=== PATIENT | female | born 1995 ===

== ENCOUNTER 2021-11-22 15:39 | Outpatient (CLI) | payer SELFPAY ==
[2021-11-22] MEDS ORDERED: LACTATED RINGERS 500 ML IV ONE (16:31)
[2021-11-22] MEDS ORDERED: BICITRA ORAL LIQD 30ML PO ONE (16:57)
[2021-11-22] MEDS ORDERED: CALCIUM CARBONATE 500 MG TAB CHEW PO ONE (17:00)
[2021-11-22] MEDS ORDERED: METOCLOPRAMIDE 10 MG TAB PO NR (17:00)
[2021-11-22 17:58] VITALS: BP 109/73
== END 2021-11-22 18:18 | disposition home or self-care (01) ==
LOC: TRG 15:39 → APU 15:41 → TRG 18:18
PROVIDERS: ATTEND Obstetrics & Gynecology
DX: O26.893 Other specified pregnancy related conditions, third trimester (principal); R10.9 Unspecified abdominal pain; Z3A.34 34 weeks gestation of pregnancy
CPT/HCPCS: 59025

== ENCOUNTER 2021-12-28 01:42 | Inpatient (IN) | payer SELFPAY ==
--- NOTE | 2021-12-28 03:31 | History and Physical Report ---
History of Present Illness Date of examination: 12/28/21 Date of admission: 12/28/2021 Chief complaint: Contractions History of present illness: 26-year-old at 39-4/7 weeks gestation presents to OB triage reporting contractions that are irregular yet painful occurring every 3 to 5 minutes. No vaginal bleeding. No leakage of fluid. Good movement. The patient receives care at [facility]. She reports that she is GBS positive. She states that she has gestational diabetes. However, she does not check fasting and 2-hour postmeal glucoses. As such, she is not on any medication. She has not changed her diet. She reports that her hemoglobin A1c was elevated at 5.9 today. Induction of labor was scheduled for Friday, December 31, 2021. According to the records, she had a visit yesterday at which time her cervix was 2/50%/-2. In OB triage today, cervix is 3-4/50%/-3. The patient is admitted to labor and delivery for induction of labor secondary to noncompliant gestational diabetes. Past History Past Medical History: no pertinent history Past Surgical History: no surgical history Family/Genetic History: none Social history: no significant social history - Obstetrical History Expected Date of Delivery: 12/31/21 Actual Gestation: 39 Week(s) 4 Day(s) : 3 Para: 2 Medications and Allergies Allergies Allergy/AdvReac Type Severity Reaction Status Date / Time No Known Allergies Allergy Verified 10/12/15 00:29 Home Medications Medication Instructions Recorded Confirmed Last Taken Type No Known Home Medications [No 10/12/15 10/12/15 Unknown History Reported Home Medications] Review of Systems All systems: negative - Vital Signs Vital signs: Vital Signs Pulse Pulse Ox 80 100 12/28/21 02:15 12/28/21 02:15 Temp Pulse Resp BP Pulse Ox 98.0 F 88 18 129/79 100 12/28/21 02:25 12/28/21 03:26 12/28/21 02:25 12/28/21 03:26 12/28/21 03:25 - Physical Exam Breasts: Positive: normal Cardiovascular: Regular rate Lungs: Positive: Normal air movement Abdomen: Positive: normal appearance Genitourinary (Female): Positive: normal external genitalia, normal perenium Vulva: both: normal Vagina: Positive: normal moisture Uterus: Positive: enlarged Adnexa: both: normal Anus/Rectum: Positive: normal perianal skin Extremities: Positive: normal Deep Tendon Reflex Grade: Normal +2 - Obstetrical FHR: category 1 Uterine Contraction Monitor Mode: External Cervical Dilatation: 3.5 Cervical Effacement Percentage: 50 station: -3 Uterine Contraction Frequency (min): 5 Uterine Contraction Pattern: Irregular Results All other labs normal. Ultrasound: report reviewed Assessment and Plan - Patient Problems (1) 39 weeks gestation of Current Visit: Yes Status: Acute Plan to address problem: care is up-to-date at [facility]. The patient is GBS positive. The patient's 2 hour 75 g glucose tolerance test was abnormal. The patient does not check fasting and 2-hour postmeal glucoses at home. records reveal an abnormal quad screen. She declined seeing a perinatology. Cell free DNA was low risk. (2) Gestational diabetes mellitus (GDM) affecting third Current Visit: Yes Status: Acute Plan to address problem: The patient does not check fasting and 2-hour postmeal glucoses. Hemoglobin A1c recently was 5.9. In labor delivery, check Accu-Cheks fasting and 2-hour post meal. 2200 kcal ADA diet was ordered. When in active labor, check Accu-Cheks every 1 hour. At that time the goal is to keep Accu-Cheks at 99 or below. (3) Group B Streptococcus carrier, +RV culture, currently Current Visit: Yes Status: Acute Plan to address problem: Penicillin ordered for 2010 CDC MMWR guidelines. (4) Encounter for induction of labor Current Visit: Yes Status: Acute Plan to address problem: Admit to labor and delivery. Ripen cervix further with oral Cytotec.
[2021-12-28] MEDS ORDERED: TERBUTALINE 1 MG/1 ML INJ SUB-Q PRN (03:32)
[2021-12-28] MEDS ORDERED: fentaNYL 100 MCG/2 ML INJ IV PRN (03:32)
[2021-12-28] MEDS ORDERED: METHYLERGONOVINE MALEATE 0.2 MG/ML VIAL IM PRN (03:32)
[2021-12-28] MEDS ORDERED: CARBOPROST TROMETHAMINE 250 MCG/1 ML INJ IM PRN (03:32)
[2021-12-28] MEDS ORDERED: ACETAMINOPHEN 325 MG TAB PO PRN (03:32)
[2021-12-28] MEDS ORDERED: BUTORPHANOL 2 MG/1 ML INJ IV PRN (03:32)
[2021-12-28] MEDS ORDERED: PENICILLIN G POTASSIUM 5 MIL.UNITS in SODIUM CHLORIDE 0.9% 50 ML IV ONE (03:32)
[2021-12-28] MEDS ORDERED: ePHEDrine SULFATE 50 MG/1 ML INJ IV PRN ×2 (03:32→06:30)
[2021-12-28] MEDS ORDERED: miSOPROStol 25 MCG TAB PO SCH (04:00)
[2021-12-28 04:15] LABS: Hematocrit 35.7 % (30.3-42.9); Hemoglobin 11.5 gm/dl (10.1-14.3); Mean Corpuscular HGB Conc 32 % (30-34); Mean Corpuscular Volume 83 fl (79-97); Platelet Count 257 K/mm3 (140-440); Red Blood Count 4.29 M/mm3 (3.65-5.03); Red Cell Distribution Width 15.3 % (13.2-15.2)
[2021-12-28] MEDS: SODIUM CHLORIDE 0.9% 1000 ML 1,000 ML IV SCH ×3 (04:24→08:53)
--- NOTE | 2021-12-28 04:25 | Ultrasound Report ---
ULTRASOUND OBSTETRIC INDICATION: Contractions. Clinical Gestational Age (GA): 39.4 weeks TECHNIQUE: Transabdominal. COMPARISON: None available. FINDINGS: There is a single intrauterine . Biparietal Diameter = 9.06 cm = 36 weeks, 5 day(s). Head Circumference = 29.54 cm = 32 weeks, 5 day(s). Abdominal Circumference = 33.73 cm = 37 weeks, 4 day(s). Femur Length = 7.98 cm = 40 weeks, 6 day(s). Average Ultrasound Age (AUA) = 37.0 weeks Heart Rate: 141 beats per minute. Estimated Weight in grams (if calculated): 3272 Estimated Weight Growth Percentile (if calculated): 27 Position: cephalic. Cervix: closed. Length in cm (if measured): Not measured Placenta: anterior and free of the os. Amniotic Fluid Volume: normal Amniotic Fluid Index (JOLENE) in cm (if calculated): 6.9. Maternal Adnexa: No significant abnormality. IMPRESSION: 1. Single, living intrauterine with estimated sonographic age of 37 weeks, 0 day(s). 2. No significant sonographic abnormality. Signer Name: Skinny Fitzgerald MD Signed: 12/28/2021 4:20 AM Workstation Name: [id number]
[2021-12-28] MEDS ORDERED: ONDANSETRON 4 MG/2 ML INJ IV PRN ×2 (06:30→12:07)
[2021-12-28] MEDS ORDERED: LACTATED RINGERS 250 ML IV SOLN IV ONE (06:30)
[2021-12-28] MEDS ORDERED: diphenhydrAMINE 50 MG/ML VIAL IV PRN (06:30)
[2021-12-28] MEDS ORDERED: NalbUPHINE 10 MG/1 ML INJ IV PRN (06:30)
[2021-12-28] MEDS ORDERED: NALOXONE 2 MG/2 ML INJ IV PRN (06:30)
--- NOTE | 2021-12-28 06:55 | Anesthesia Consultation ---
Anesthesia Consult and Med Hx Date of service: 12/28/21 - Airway Anesthetic Teeth Evaluation: Good ROM Head & Neck: Adequate Mental/Hyoid Distance: Adequate Mallampati Class: Class II Intubation Access Assessment: Probably Good - Pulmonary Exam CTA: Yes - Cardiac Exam Cardiac Exam: RRR - Pre-Operative Health Status ASA Pre-Surgery Classification: ASA2 Proposed Anesthetic Plan: Epidural - Pulmonary Hx Smoking: No Hx Asthma: No COPD: No Hx Pneumonia: No Hx Sleep Apnea: No - Cardiovascular System Hx Hypertension: No Hx Heart Attack/AMI: No Hx Angina: No - Central Nervous System Hx Seizures: No Hx Psychiatric Problems: No - Gastrointestinal Hx Gastroesophageal Reflux Disease: No - Endocrine Hx Renal Disease: No Hx End Stage Renal Disease: No Hx Liver Disease: No Hx Insulin Dependent Diabetes: No Hx Non-Insulin Dependent Diabetes: No Hx Hypothyroidism: No Hx Hyperthyroidism: No - Hematic Hx Anemia: No Hx Sickle Cell Disease: No - Other Systems Hx Alcohol Use: No Hx Obesity: Yes
--- NOTE | 2021-12-28 06:56 | Progress Note ---
Labor Epidural - Labor Epidural Start Time: 06:38 Stop Time: 06:51 Performed by:: NIKA BUTCHER Procedure: Patient is requesting epidural for labor and pain. H&P, labs were reviewed. Patient IDed, all questions and concerns were answered, and consent was signed. Timeout was performed at bedside. Patient in sitting position. Sterile prep and drape was performed. 3ml of 1% lidocaine skin wheal at L[3]- L [4]. 17- gauge Tuohy epidural needle was advanced to loss of resistance with air technique 8.5cm. Negative CSF negative blood. Epidural catheter advanced to [14] centimeters. [negative] Aspiration [negative] test dose. Sterile dressing applied. Patient tolerated procedure.
[2021-12-28] MEDS ORDERED: fentaNYL-BUPIV 2 MCG/ML-0.125% 200 MCG/100 ML BAG EPIDURAL SCH (07:00)
[2021-12-28] MEDS ORDERED: PENICILLIN G POTASSIUM 2.5 MIL.UNITS in SODIUM CHLORIDE 0.9% 50 ML IV SCH (08:00)
--- NOTE | 2021-12-28 08:30 | Event Note ---
Date: 12/28/21 pt evaluated and pelvic 6-7/100/0; FHR category I with areas of loss of contact. AROM done with clear fluid and FSE placed. Pt has received 1st dose of PCN for GBS+; Epidural in progress and pt comfortable. Will measure adequacy of ctx with last cytotec more than 4hrs ago and augment with pitocin in 1hr if pt unchanged or ctx inadequate. Expect
--- NOTE | 2021-12-28 10:49 | Event Note ---
Date: 12/28/21 SVE: anterior lip, 0 station.
[2021-12-28] MEDS: OXYTOCIN DRIP 30 UNITS/500 ML BAG IV SCH ×2 (11:51→12:19)
[2021-12-28] MEDS ORDERED: LANOLIN/ZINC/DIMETHICONE (LANSINOH) 7 GM TP PRN (12:07)
[2021-12-28] MEDS ORDERED: MAGNESIUM HYDROXIDE (MOM) ORAL LIQD UDC PO PRN (12:07)
[2021-12-28] MEDS ORDERED: HYDROcodone/ACETAMINOPHEN 5-325 MG TAB PO PRN (12:07)
[2021-12-28] MEDS ORDERED: WITCH HAZEL/ GLYCERIN PAD TP PRN (12:07)
--- NOTE | 2021-12-28 12:29 | Procedure Note ---
OB Delivery Note - Delivery Date of Delivery: 12/28/21 Surgeon: DEBBIE DHALIWAL Estimated blood loss: 200cc - Vaginal Delivery presentation: vertex Delivery position: OA Intrapartum events: none Delivery induction: misoprostol Delivery augmentation: rupture of membranes Delivery monitor: external FHT, external uterine, internal FHT, internal uterine Route of delivery: Delivery placenta: spontaneous Delivery cord: 3 umbilical vessels Episiotomy: none Delivery laceration: none Anesthesia: epidural Delivery comments: Spontaneous vaginal delivery at 11:46 of liveborn female weighing 3.63 kg over intact perineum with apgars of 8/9. Epidural anesthesia. was atraumatic; no nuchal cord. Baby placed skin to skin with mom immediately after delivery. Spontaneous cry and respirations. Baby suctioned with bulb syringe and dried with warm blankets. 3 vessel cord double clamped and cut. Baby taken to radiant warmer for further suctioning and evaluation. Spontaneous delivery of intact placenta and membranes at 11:50. EBL 200 cc. Pitocin to IV fluids after delivery of placenta. Fundus firm and midline. No lacerations noted. Vaginal sweep negative. Sponge count correct. Mother and baby stable in birthing room.
[2021-12-28] MEDS ORDERED: FERROUS SULFATE 325 MG TAB PO SCH (13:00)
[2021-12-28] MEDS: IBUPROFEN 800 MG TAB PO SCH ×2 (13:49→22:06)
[2021-12-28] MEDS: DOCUSATE SODIUM 100 MG CAP PO SCH ×2 (13:50→22:07)
--- NOTE | 2021-12-28 19:29 | Post Anesthesia Evaluation ---
- Post Anesthesia Evaluation Patient Participated: Yes Airway Patent: Yes Stable Respiratory Function: Yes Nausea/Vomiting: No Temp > 96.8F: Yes Pain Manageable: Yes Adequeate Hydration: Yes Anesthesia Complications: No Patient on Ventilator: Yes
[2021-12-29] MEDS: IBUPROFEN 800 MG TAB PO SCH ×3 (05:36→21:24)
--- NOTE | 2021-12-29 08:28 | Progress Note ---
Assessment and Plan A: day 1 S/P . Gestational diabetes. P: Repeat H&H (order is in). Continue routine care. Anticipate discharge home tomorrow if patient continues to do well. Subjective - Subjective Date of service: 12/29/21 Principal diagnosis: day 1 S/P Patient reports: appetite normal, voiding normally, pain well controlled, flatus, ambulating normally, no dizzy ambulation, no nauseated : doing well, bottle feeding Objective - Vital Signs Latest vital signs: Vital Signs Temp Pulse Resp BP BP Pulse Ox Pulse Ox 12/28/21 23:44 98.2 F 75 20 102/57 98 12/28/21 19:30 99 12/28/21 15:44 96 12/28/21 13:57 85 99 12/28/21 13:52 70 98 12/28/21 13:47 77 99 12/28/21 13:42 78 98 12/28/21 13:40 81 93 12/28/21 13:37 86 99 12/28/21 13:35 84 92/55 12/28/21 13:32 93 H 99 12/28/21 13:27 94 H 98 12/28/21 13:22 99 H 99 12/28/21 13:17 88 99 12/28/21 13:15 98.1 F 91 H 19 108/70 96 12/28/21 13:12 82 99 12/28/21 13:07 89 98 12/28/21 13:05 87 111/58 12/28/21 13:02 88 98 12/28/21 12:57 85 99 12/28/21 12:52 98 H 99 12/28/21 12:50 86 119/69 12/28/21 12:47 86 100 12/28/21 12:42 81 99 12/28/21 12:37 80 100 12/28/21 12:35 81 114/62 12/28/21 12:32 87 100 12/28/21 12:27 92 H 100 12/28/21 12:22 88 100 12/28/21 12:20 94 H 120/62 12/28/21 12:17 104 H 97 12/28/21 12:12 99 H 99 12/28/21 12:07 100 H 99 12/28/21 12:05 93 H 118/66 12/28/21 12:02 103 H 100 12/28/21 11:57 113 H 100 12/28/21 11:52 97 H 100 12/28/21 11:50 104 H 116/72 12/28/21 11:47 129 H 100 12/28/21 11:42 95 H 100 12/28/21 11:36 101 H 99 12/28/21 11:31 111 H 100 12/28/21 11:26 134 H 100 12/28/21 11:24 61 78 L 12/28/21 11:21 88 183/79 100 12/28/21 11:16 80 100 12/28/21 11:11 80 100 12/28/21 11:06 87 95/54 100 12/28/21 11:01 95 H 99 12/28/21 10:56 79 98 12/28/21 10:52 80 92/54 12/28/21 10:51 80 99 12/28/21 10:46 92 H 100 12/28/21 10:41 98 H 100 12/28/21 10:36 90 100 12/28/21 10:35 91 H 106/56 12/28/21 10:31 80 100 12/28/21 10:26 80 100 12/28/21 10:21 76 111/71 100 12/28/21 10:16 82 100 12/28/21 10:11 95 H 99 12/28/21 10:06 75 100 12/28/21 10:05 79 103/65 12/28/21 10:01 85 99 12/28/21 09:56 84 100 12/28/21 09:51 94 H 103/64 100 12/28/21 09:46 78 100 12/28/21 09:41 88 100 12/28/21 09:36 74 99 12/28/21 09:35 94 H 101/63 12/28/21 09:31 101 H 100 12/28/21 09:26 83 99 12/28/21 09:22 72 99/56 12/28/21 09:21 76 98 12/28/21 09:16 71 97 12/28/21 09:11 72 97 12/28/21 09:06 76 98 12/28/21 09:05 71 95/52 12/28/21 09:01 74 98 12/28/21 08:56 95 H 98 12/28/21 08:51 89 100/57 100 12/28/21 08:46 75 98 12/28/21 08:41 83 99 12/28/21 08:36 78 100/56 99 12/28/21 08:31 80 100 Intake and Output 12/28/21 12/29/21 12/29/21 23:59 07:59 15:59 Intake Total 240 200 Output Total 900 Balance -660 200 Intake: Oral 240 200 Output: Urine 900 Void 900 Other: Total, Intake Amount 240 200 Total, Output Amount 600 # Voids Void 3 1 - Exam Cardiovascular: Present: Regular rate Lungs: Present: Clear to auscultation Abdomen: Present: normal appearance, soft. Absent: distention, tenderness, guarding, rigidity Uterus: Present: normal, firm, fundal height below umbilicus (fundus firm and midline at 2 FB below umbilicus). Absent: bogginess, tenderness Extremities: Absent: tenderness
[2021-12-29 09:21] LABS: Hematocrit 34.7 % (30.3-42.9); Hemoglobin 11.1 gm/dl (10.1-14.3)
[2021-12-29] MEDS ORDERED: FERROUS SULFATE 325 MG TAB PO SCH (10:00)
[2021-12-29] MEDS: DOCUSATE SODIUM 100 MG CAP PO SCH ×2 (15:03→21:24)
[2021-12-30] MEDS: IBUPROFEN 800 MG TAB PO SCH (05:47)
--- NOTE | 2021-12-30 11:14 | Progress Note ---
Assessment and Plan A: day 2 S/P . Gestational diabetes. P: Discharge patient home today. Discussed with patient discharge instructions and warning signs. Advised patient to continue taking vitamin daily at home. Advised patient to avoid intercourse and lifting. Advised patient to follow up at [facility] in 6 weeks. Patient voiced understanding of all instructions. Subjective - Subjective Date of service: 12/30/21 Principal diagnosis: day 2 S/P Patient reports: appetite normal, voiding normally, pain well controlled, flatus, ambulating normally, no dizzy ambulation, no nauseated [place]: doing well Objective - Vital Signs Latest vital signs: Vital Signs Temp Pulse Resp BP Pulse Ox Pulse Ox 12/30/21 07:59 98.3 F 71 16 131/83 100 12/30/21 05:47 18 12/30/21 00:46 98.5 F 65 20 95/48 99 12/29/21 22:24 18 12/29/21 21:24 18 12/29/21 20:10 99 12/29/21 16:06 98.2 F 76 18 125/69 98 Intake and Output 12/29/21 12/30/21 12/30/21 23:59 07:59 15:59 Intake Total 835 120 Balance 835 120 Intake: Oral 475 120 Intake, Free Water 360 Other: Total, Intake Amount 120 120 # Voids Void 1 1 - Exam Cardiovascular: Present: Regular rate Lungs: Present: Clear to auscultation Abdomen: Present: normal appearance, soft. Absent: distention, tenderness, guarding, rigidity Uterus: Present: normal, firm, fundal height below umbilicus (fundus firm and midline at 2 FB below umbilicus). Absent: bogginess, tenderness Extremities: Absent: tenderness
--- NOTE | 2021-12-30 11:19 | Discharge Summary ---
Providers - Providers Date of Admission: 12/28/21 03:32 Date of discharge: 12/30/21 Attending physician: ZEKE BARRIENTOS MD Primary care physician: ZEKE BARRIENTOS MD Hospitalization Reason for admission: active labor Delivery: Episiotomy: none Laceration: none Other procedures: none complications: none Discharge diagnosis: IUP at term delivered [place] baby: female Pertinent studies: Labs Hospital course: Stable hospital course Condition at discharge: Good Disposition: 01 HOME / SELF CARE / HOMELESS - Discharge Diagnoses (1) Term delivered Status: Acute Plan - Provider Discharge Summary Activity: routine, no sex for 6 weeks, no heavy lifting 4 weeks, no strenuous exercise Diet: routine Instructions: routine Additional instructions: Continue taking your vitamin daily at home. Call your doctor immediately for: * Fever > 100.5 * Heavy vaginal bleeding ( >1 pad per hour) * Severe persistent headache * Shortness of breath * Reddened, hot, painful area to leg or breast - Follow up plan Follow up: [facility] [Referring] - 6 Weeks
[2021-12-30 11:58] VITALS: BP 121/85
== END 2021-12-30 14:55 | disposition home or self-care (01) | DRG 807 ==
LOC: TRG 01:42 → APU 01:44 → TRG 03:32 → LD 03:32 → OB 14:24
PROVIDERS: ADMIT Obstetrics & Gynecology Gynecology; ATTEND Obstetrics & Gynecology Gynecology
PROC: 10E0XZZ Delivery of Products of Conception, External Approach (ICD-10-PCS; principal; 2021-12-28)
PROC: 3E0R3BZ Introduction of Anesthetic Agent into Spinal Canal, Percutaneous Approach (ICD-10-PCS; 2021-12-28)
PROC: 00HU33Z Insertion of Infusion Device into Spinal Canal, Percutaneous Approach (ICD-10-PCS; 2021-12-28)
PROC: 10907ZC Drainage of Amniotic Fluid, Therapeutic from Products of Conception, Via Natural or Artificial Opening (ICD-10-PCS; 2021-12-28)
PROC: 3E0P7VZ Introduction of Hormone into Female Reproductive, Via Natural or Artificial Opening (ICD-10-PCS; 2021-12-28)
DX: O24.429 Gestational diabetes mellitus in childbirth, unspecified control (principal); Z37.0 Single live birth; Z3A.39 39 weeks gestation of pregnancy; Z20.822 Contact with and (suspected) exposure to COVID-19; O99.824 Streptococcus B carrier state complicating childbirth
CPT/HCPCS: 36415; 59025; 76816; 82962; 85014; 85018; 85027; 86850; 86900; 86901; G0378; J3490; J2540; J2590; J3010; J7030; U0003